=== PATIENT | female | born 1990 | race Caucasian/White ===

== ENCOUNTER 2017-01-18 18:02 | Emergency (ER) | payer SELFPAY ==
[~2017-01-18] VITALS: Ht 157.5 cm; Wt 59.0 kg
--- NOTE | 2017-01-18 18:40 | NUR ---
[id number], C/O R SIDED NECK PAIN S/P HITTING HEAD IN CAR WHEN GOING OVER POTHOLE. RR IS EVEN AND UNLABORED WITH NAD NOTED. SKIN IS WARM AND DRY. 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
[2017-01-18] MEDS ORDERED: IBUPROFEN 600 MG TABLET PO ONE ×2 (19:00→19:26)
[2017-01-18] MEDS ORDERED: CYCLOBENZAPRINE 10 MG TABLET PO ONE (19:00)
--- NOTE | 2017-01-18 19:11 | NUR ---
REPORT RECEIVED FROM Storie FOR JEREL.
[2017-01-18] MEDS ORDERED: CYCLOBENZAPRINE 10 MG TABLET ONE (19:26)
--- NOTE | 2017-01-18 19:31 | NUR ---
Patient discharged to home in stable condition. Written and verbal after care instructions given. Patient verbalizes understanding of instruction. Patient ambulatory with a steady gait.
[2017-01-18 19:32] VITALS: BP 117/64
== END 2017-01-18 19:32 | disposition home or self-care (01) ==
LOC: ER 18:04
DX: S13.4XXA Sprain of ligaments of cervical spine, initial encounter (principal); V47.6XXA Car passenger injured in collision with fixed or stationary object in traffic accident, initial encounter; Y93.89 Activity, other specified; Y92.413 State road as the place of occurrence of the external cause; Y99.8 Other external cause status
CPT/HCPCS: 84703; 99283; A4606; Z7610